=== PATIENT | female | born 1990 | race Caucasian/White ===

== ENCOUNTER 2016-06-09 13:52 | Emergency (ER) | payer SELFPAY ==
[~2016-06-09] VITALS: Ht 167.6 cm; Wt 114.8 kg
[2016-06-09 13:59] VITALS: BP 147/84; PULSE 100; RESP 16; TEMP 98.5; O2SAT 99
--- NOTE | 2016-06-09 14:31 | PD ---
HPI Chief Complaint: Eye Problems/Injury Time Seen by Provider: 14:30 Travel History International Travel<30 days: No Contact w/Intl Traveler<30days: No Traveled to known affect area: No History of Present Illness HPI 25 year old female presents to the ED for evaluation of 5 day history of right eye redness, tearing and itching. Patient also endorses 3 day history of left eye redness, tearing and itching. Endorses 24 hour history of right-sided ear pain, sore throat, sinus congestion, clear rhinorrhea, nonproductive cough, subjective fevers. She denies headache, dizziness, vision changes, abdominal pain, nausea, vomiting. She's treated at home with warm compresses to the eye, warm salt water gargles with no improvement in symptoms. Endorses sick contacts , son had a cold last week. Denies chronic health problems, takes no daily medications. NKDA. PFSH Past Medical History Tetanus Vaccination: Unknown Influenza Vaccination: No ?: Not LMP: 2 months ago Tubal Ligation: Yes Past Surgical History Abdominal Surgery: Yes (Gastroskesis as child ) Section: Yes (X's 3) Social History Alcohol Use: No Tobacco Use: No Substance Use: No Allergies-Medications (Allergen,Severity, Reaction): Coded Allergies: No Known Allergies (Unverified , 03/20/16) Reported Meds & Prescriptions Reported Meds & Active Scripts Active Eye Drops Advanced Relief 0.05-0.1-1-1 % ([id number]-Eqqbtam-Hzceb) 1 Bartolome Bartolome 3 Drop EACH EYE TID 14 Days Amoxicillin 500 Mg Tab 500 Mg PO BID 10 Days Review of Systems Except as stated in HPI: all other systems reviewed are Neg Physical Exam Narrative GENERAL: Well-nourished, well-developed nontoxic appearing white female in no acute distress. SKIN: Warm and dry. HEAD: Normocephalic. Atraumatic. EYES: No scleral icterus. PERRLA. EOMI. Eyes bilaterally injected, right greater than left. Copious tearing bilaterally. Palpebral surfaces erythematous. No mucopurulent drainage noted in either eye. ENT: Pearly suh tympanic membranes bilaterally. Right sided air fluid level. Nasal mucosa is moist. Oropharynx with posterior erythema and moderate scattered exudates. No edema noted. Uvula midline. Airway patent. NECK: Supple, trachea midline. No JVD. ++ Right-sided anterior cervical lymphadenopathy. CARDIOVASCULAR: Regular rate and rhythm without murmurs, gallops, or rubs. 2+ DP and radial pulses bilaterally. RESPIRATORY: Breath sounds clear and equal bilaterally. No accessory muscle use. GASTROINTESTINAL: Abdomen soft, non-tender, nondistended. + Bowel sounds MUSCULOSKELETAL: No cyanosis, or edema. Patient is observed to walk with a normal gait. BACK: Nontender without obvious deformity. No CVA tenderness. Data Data Last Documented VS Vital Signs Date Time Temp Pulse Resp B/P Pulse Ox O2 Delivery O2 Flow Rate FiO2 06/09/16 14:24 16 06/09/16 13:59 98.5 100 147/84 99 Orders Group A Rapid Strep Screen (06/09/16 14:43) MDM Medical Decision Making Medical Screen Exam Complete: Yes Emergency Medical Condition: Yes Differential Diagnosis Viral conjunctivitis versus bacterial conjunctivitis versus allergic conjunctivitis versus otitis media versus otitis externa versus pharyngitis versus strep pharyngitis versus viral syndrome versus other Narrative Course 25 year old female presents to the ED for evaluation of 5 day history of right eye redness, tearing and itching. Patient also endorses 3 day history of left eye redness, tearing and itching. Endorses 24 hour history of right-sided ear pain, sore throat, sinus congestion, clear rhinorrhea, nonproductive cough, subjective fevers. She denies headache, dizziness, vision changes, abdominal pain, nausea, vomiting. She's treated at home with warm compresses to the eye, warm salt water gargles with no improvement in symptoms. Endorses sick contacts , son had a cold last week. Vitals reviewed. Physical exam reveals a nontoxic- appearing white female in no acute distress. Eyes bilaterally injected, right greater than left. Copious tearing, inflamed palpebral surfaces. No mucopurulent drainage noted from either medial canthus. Right sided air-fluid level behind a pearly suh tympanic membrane. Oropharynx mildly erythematous with moderate, scattered exudates. Uvula midline. Airway patent. Positive right-sided lymphadenopathy. Lungs clear to auscultation bilaterally. Rapid strep swab pending. I'll treat empirically for strep pharyngitis. I believe this is viral conjunctivitis bilateral eyes as well. Patient was prescribed amoxicillin 500 mg twice a day 10 days and artificial tears 3 times a day as needed for eye discomfort. She is encouraged to continue with symptomatic treatment, take medication as prescribed, even if symptoms resolve, follow up with the primary care provider. She indicated understanding of the instructions. She is agreeable with the plan of care. She is stable and discharged home. Diagnosis Primary Impression: Strep pharyngitis Additional Impression: Viral conjunctivitis of both eyes Referrals: Ear / Nose / Throat Specialist Patient Instructions: Conjunctivitis (ED), General Instructions, Strep Throat ( ED) Additional Instructions: Rest, hydrate. Push fluids such as sports drinks, Pedialyte, popsicles, clear broth. Take all antibiotics as prescribed, even if symptoms resolve Eyedrops in each eye 3-4 times a day as needed for symptomatic relief. Alternating Motrin and Tylenol every 4-6 hours as needed for continued fever. Increase handwashing frequently to avoid the spread of the virus to other family members and the community. Disinfect commonly touched surfaces such as light switches, microwaves, remote controls. Replace toothbrush at the end of this illness. Follow-up with the primary care provider this week. Return to the ED for any urgent or emergent medical condition. Med/Other Pt SpecificInfo: Prescription(s) given Scripts Nbuapjwvpefxepaf-[id number]-[id number] (Eye Drops Advanced Relief 0.05-0.1-1-1 %)1 Bartolome Dro3 Drop EACH EYE TID 14 Days Prov:Katie Fernández MD 06/09/16 Amoxicillin 500 Mg [id number] Mg PO BID 10 Days Ref 0 Prov:Katie Fernández MD 06/09/16 Disposition: 01 DISCHARGE HOME Condition: Stable Marcella Al Jun 09, 2016 14:31
[2016-06-09] MEDS ORDERED: [UNRECOGNIZED DRUG - CODE] EACH EYE (14:52)
[2016-06-09] MEDS ORDERED: AMOX500T PO (14:52)
== END 2016-06-09 15:08 | disposition home or self-care (01) ==
LOC: PHED 13:52 → PHEFT 15:08
DX: B30.9 Viral conjunctivitis, unspecified (principal); J02.0 Streptococcal pharyngitis
CPT/HCPCS: 87081; 87880; 99283